=== PATIENT | male | born 2000 | race Hispanic/Latino ===

== ENCOUNTER 2022-07-23 18:59 | Emergency (ER) | payer BC, SELFPAY ==
[2022-07-23] MEDS ORDERED: Ketorolac Tromethamine 30 MG/ML VIAL ONE (20:01)
== END 2022-07-23 20:20 | disposition home or self-care (01) ==
LOC: CSHERS 18:59
DX: K03.81 Cracked tooth (principal)
CPT/HCPCS: 96372; 99282; J1885